=== PATIENT | female | born 1980 | race Caucasian/White ===

== ENCOUNTER 2022-05-12 15:30 | Emergency (ER) | payer OTHER, SELFPAY ==
[2022-05-12 15:36] VITALS: BP 123/90; PULSE 103; RESP 20; TEMP 36.7; O2SAT 100
--- NOTE | 2022-05-12 15:36 | ED.NAVMDI ---
HPI - Nausea/Vomiting/Diarrhea General Chief complaint: Nausea/Vomiting/Diarrhea Stated complaint: vomiting Time Seen by Provider: 05/12/22 15:36 Source: patient and RN notes reviewed History of Present Illness HPI Narrative: Patient is a 41-year-old female who presents to the Urgent Care with complaints of vomiting yesterday. Patient states that she has not vomited since then and has ate and drink normal meals without any issues. Currently denies any abdominal pain, fever, diarrhea or nausea. Patient states she just ?feels fatigued?. No other acute complaints. No acute distress noted. Patient aware of the plan of care. Some parts of this dictation were generated by voice recognition software and may contain typographical and/or grammatical inaccuracies. Related Data Home Medications Medication Instructions Recorded Confirmed No Home Medications 05/12/22 05/12/22 Allergies Allergy/AdvReac Type Severity Reaction Status Date / Time No Known Allergies Allergy Verified 05/12/22 15:40 Review of Systems Review of Systems: CONSTITUTIONAL: Denies fever, chills, or sweats. Reports fatigued EYES: Denies visual changes, redness, or discharge. ENT: Denies rhinorrhea, congestion, sore throat, or otalgia. CARDIOVASCULAR: Denies chest pain, palpitations, or edema. RESPIRATORY: Denies cough or dyspnea. GASTROINTESTINAL: Denies abdominal pain, nausea, vomiting, or diarrhea. GENITOURINARY: Denies dysuria or hematuria. SKIN: Denies rash or itching. MUSCULOSKELETAL: Denies back pain, joint pain, or myalgia. NEUROLOGIC: Denies headache, numbness, or weakness. All other systems reviewed are negative, except as documented in HPI. PMFSH Comments At the time of my signature, I reviewed and agree with the nursing past medical, surgical, social, and family history. There is no relevant family history pertinent to the patient complaint. Exam Narrative: GENERAL: This is a well-nourished, well-developed patient, in no apparent distress. HEAD: normocephalic, atraumatic. EYES: PERRL. Sclera clear/white. Vision is grossly intact. EARS: External ears normal, auditory canals clear and without drainage, TMs normal without perforation. Hearing grossly intact. NOSE: External nose normal with no obvious nasal discharge, nares without redness, no rhinorrhea. THROAT: Mucous membranes moist, posterior pharynx clear. NECK: Neck supple CARDIOVASCULAR: Regular rate and rhythm RESPIRATORY: Clear to auscultation. Breath sounds equal bilaterally. No wheezes, rales, or rhonchi. GASTROINTESTINAL: Abdomen soft, non-tender, nondistended. Bowel sounds are active. SKIN: warm, intact with no suspicious lesions or rash, good texture and turgor. NEURO: awake, alert, and oriented to person, place and time. There were no obvious focal neurologic abnormalities. EXTREMITIES: No clubbing, cyanosis, or edema. Course Course Level of Care: Express Care Visit Vital Signs Vital signs: Vital Signs Temperature 98.0 F 05/12/22 15:36 Pulse Rate 103 H 05/12/22 15:36 Respiratory Rate 20 05/12/22 15:36 Blood Pressure 123/90 05/12/22 15:36 Pulse Oximetry 100 05/12/22 15:36 Oxygen Delivery Room Air 05/12/22 15:36 Temperature 98.0 F 05/12/22 15:36 Pulse Rate 103 H 05/12/22 15:36 Respiratory Rate 20 05/12/22 15:36 Blood Pressure 123/90 05/12/22 15:36 Pulse Oximetry 100 05/12/22 15:36 Oxygen Delivery Room Air 05/12/22 15:36 Reviewed MDM - Nausea/Vomiting/Diarrhea MDM Narrative Medical decision making narrative: Advised patient to increase her water intake and rest. Eat a bland diet for the next 24-36 hours. If she develops any increase in symptoms associated with recurrent or persistent nausea, vomiting or abdominal pain-go to the emergency room. Symptoms are likely viral and will improve within 3-5 days. Follow-up with your PCP within 2-5 days or for worsening symptoms or failure to improve. Differential Diagnosis Differentia
== END 2022-05-12 16:12 | disposition home or self-care (01) ==
PROVIDERS: Emergency Provider Nurse Practitioner Family
DX: B34.9 Viral infection, unspecified (principal)
CPT/HCPCS: 99202; G0463

== ENCOUNTER 2023-02-08 09:18 | Emergency (ER) | payer OTHER, SELFPAY ==
[2023-02-08 09:21] VITALS: BP 127/62; PULSE 138; RESP 20; TEMP 36.7; O2SAT 100
--- NOTE | 2023-02-08 09:30 | ED.NECK ---
HPI - Neck Pain/Injury General Chief Complaint: Headache Stated Complaint: neck pain Time Seen by Provider: 02/08/23 09:29 Source: patient and RN notes reviewed Mode of arrival: ambulatory Limitations: no limitations History of Present Illness MD complaint: neck pain Onset (ago): day(s) (1) Radiation: occiput Severity: moderate and constant Quality: dull, crushing and aching Duration: constant Relieving factors: none Exacerbating factors: movement of neck Context: unknown Associated symptoms: headache, nausea and vomiting Treatments prior to arrival: none Related Data Allergies Allergy/AdvReac Type Severity Reaction Status Date / Time No Known Allergies Allergy Verified 05/12/22 15:40 Review of Systems Review of Systems: All systems reviewed & are unremarkable except as noted in HPI and below Exam Const: General: no acute distress, alert and ill appearing acutely Nutritional Appearance: well nourished Orientation/consciousness: patient oriented x3 Limitations: no limitations HENMT: Head: normal to inspection Ears: external ears normal Face/Nose/Sinus: Normal external nose present Face and sinus: normal facial exam Mouth: Yes moist mucous membranes Eyes: Conjunctivae: conjunctivae normal Pupils: Equal, round and reactive pupils present EOM: EOMs intact bilaterally Neck: Neck: normal visual inspection Resp: Effort & Inspection: normal respiratory effort Auscultation: clear to auscultation bilaterally Cardio: Rate: regular rate Rhythm: regular rhythm GI: GI Palp: Yes Soft to palpation and No Tenderness to palpation present (GI) Auscultation: normal bowel sounds Back/Spine/Pelvis: Cervical Spine: cervical muscular tenderness ( moderate on the left), pain with cervical ROM, cervical spasm ( moderate on the left), Cervical spine tenderness ( C4-5 and 6) and cervical ROM abnormal ( moderate pain with range of motion but able to complete in all directions) Thoracic/Lumbar Spine: thoraco-lumbar ROM normal Skin: General skin exam: normal color Rashes: no rashes Neuro: General: patient oriented x3, moves all extremities, no meningeal signs and CN's II-XI intact bilaterally Speech: normal speech Gait exam (Neuro): Normal gait present Extrem: General: normal to inspection and no clubbing, cyanosis or edema Psych: Mental Status: mental status grossly normal Affect: normal affect Attitude: cooperative Course Course Emergency Course: patient significantly improved following Toradol, Reglan, Benadryl IV. Vital Signs Vital signs: Vital Signs Temperature 36.7 C 02/08/23 09:21 Pulse Rate 138 H 02/08/23 09:21 Respiratory Rate 20 02/08/23 09:21 Blood Pressure 127/62 02/08/23 09:21 Pulse Oximetry 100 02/08/23 09:21 Oxygen Delivery Room Air 02/08/23 09:21 Temperature 36.7 C 02/08/23 09:21 Pulse Rate 100 02/08/23 11:06 Respiratory Rate 18 02/08/23 11:06 Blood Pressure 105/64 02/08/23 11:06 Pulse Oximetry 98 02/08/23 11:06 Oxygen Delivery Room Air 02/08/23 11:06 MDM - Neck Pain/Injury Differential Diagnosis Differential diagnosis: Likely cervical radiculopathy, torticollis, strain of neck muscle and other ( electrolyte abnormality, anemia, meningitis) Lab Data Attestation: I reviewed the patient's lab results. 02/08/23 10:09 02/08/23 10:09 Labs: Lab Results 02/08/23 Range/Units 10:09 WBC 9.6 (4.8-10.8) K/mm3 RBC 4.81 (4.20-5.40) M/mm3 Hgb 13.4 (12.0-15.0) g/dL Hct 42.1 (35.0-49.0) % MCV 87.5 (78.0-102.0) fL MCH 27.9 (27.0-31.0) pg MCHC 31.8 L (32.0-36.0) g/dL RDW 14.0 (11.6-14.4) % Plt Count 242 (150-420) K/mm3 MPV 10.0 (9.2-11.8) fl Immature Gran % (Auto) 0.3 H (0.0-0.0) % Neut % (Auto) 90.1 H (50.0-70.0) % Lymph % (Auto) 2.5 L (18.0-42.0) % [place] % (Auto) 6.4 (2.0-11.0) % Eos % (Auto) 0.6 L (1.0-6.0) % Baso % (Auto) 0.1 (0.0-1.0) % Lymph # (Auto) 0.24 L (1.10-4.50) K/
[2023-02-08] MEDS: KETOROLAC 30 MG/ML VIAL (*BKC) IV PUSH (09:51)
[2023-02-08] MEDS: METOCLOPRAMIDE HCL INJ 10 MG/2 ML VIAL IV PUSH (09:51)
[2023-02-08] MEDS: diphenhydrAMINE HCl INJ 50 MG/ML VIAL 25 MG IV PUSH (09:56)
[2023-02-08 10:14] LABS: Basophils Absolute Auto 0.01 K/mm3 (0.00-0.10); Basophils Percent Auto 0.1 % (0.0-1.0); Eosinophils Absolute Auto 0.06 K/mm3 (0.02-0.50); Eosinophils Percent Auto 0.6 % (1.0-6.0); Hematocrit 42.1 % (35.0-49.0); Hemoglobin 13.4 g/dL (12.0-15.0); Immature Granulocyte Absolute 0.03 K/mm3 (0.00-0.00); Immature Granulocyte Percent A 0.3 % (0.0-0.0); Lymphocytes Absolute Auto 0.24 K/mm3 (1.10-4.50); Lymphocytes Percent Auto 2.5 % (18.0-42.0); Mean Corpuscular HGB Conc 31.8 g/dL (32.0-36.0); Mean Corpuscular Hemoglobin 27.9 pg (27.0-31.0); Mean Corpuscular Volume 87.5 fL (78.0-102.0); Monocytes Absolute Auto 0.61 K/mm3 (0.10-0.90); Monocytes Percent Auto 6.4 % (2.0-11.0); Neutrophils Absolute Auto 8.6 K/mm3 (1.7-7.2); Neutrophils Percent Auto 90.1 % (50.0-70.0); Platelet Count Result 242 K/mm3 (150-420); Red Blood Count 4.81 M/mm3 (4.20-5.40); White Blood Count 9.6 K/mm3 (4.8-10.8)
[2023-02-08 10:29] LABS: Alanine Aminotransferase 42 U/L (14-59); Albumin Level 2.9 g/dL (3.4-5.0); Alkaline Phosphatase 56 U/L (46-116); Anion Gap 9 mmol/L (8-16); Aspartate Amino Transferase 17 U/L (15-37); Bilirubin,Total 0.2 mg/dL (0.00-1.00); Blood Urea Nitrogen 9 mg/dL (7-18); Calcium 8.3 mg/dL (8.5-10.1); Carbon Dioxide 26 mmol/L (21-32); Chloride 101 mmol/L (98-108); Estimated CRCL calculation 71 ml/min; Estimated Glomerular Filt Rate > 60; Glucose 109 mg/dL (70-99); Osmolality Calculated 281 mOsm/kg (285-295); Potassium 3.6 mmol/L (3.5-5.1); Sodium 136 mmol/L (136-145); Total Protein 5.8 g/dL (6.4-8.2)
[2023-02-08 10:31] LABS: CRP < 0.5 mg/dL (0.0-0.9)
[2023-02-08 10:32] LABS: Lactic Acid Reflex 1.4 mmol/L (0.4-2.0)
[2023-02-08 11:06] VITALS: BP 105/64; PULSE 100; RESP 18; O2SAT 98
--- NOTE | 2023-02-14 14:01 | PC.NURSE ---
final blood culture reports x2 reviewed. no growth after 5 days . no change in plan of care.
== END 2023-02-08 11:12 | disposition home or self-care (01) ==
PROVIDERS: Emergency Provider Emergency Medicine
DX: M54.2 Cervicalgia (principal); R51.9 Headache, unspecified
CPT/HCPCS: 36415; 80053; 83605; 85025; 86140; 87040; 96374; 96375; 99284; J1200; J1885; J2765